=== PATIENT | male | born 1970 | race Caucasian/White ===

== ENCOUNTER 2016-08-12 08:29 | Emergency (ER) | payer OTHER ==
[~2016-08-12] VITALS: Ht 167.6 cm; Wt 75.0 kg
[2016-08-12 08:29] VITALS: Ht 167.6 cm; Wt 75.0 kg
[2016-08-12] MEDS ORDERED: METOCLOPRAMIDE 10 MG INJ IV STA (08:38)
[2016-08-12] MEDS ORDERED: SOD CHLORIDE 0.9% 1,000 ML IV STA (08:38)
[2016-08-12 09:05] LABS: BASOPHILS % 0.6 % (0.0-2.0); EOSINOPHILS % 0.3 % (0.0-7.0); HEMATOCRIT 49.8 % (42.0-52.0); HEMOGLOBIN 17.2 g/dl (14.0-18.0); LYMPHOCYTES # 2.1 10^3/ul (0.8-2.9); LYMPHOCYTES % 26.5 % (15.0-51.0); MEAN CORPUSCULAR HEMOGLOBIN 32.6 pg (29.0-33.0); MEAN CORPUSCULAR HGB CONC 34.5 g/dl (32.0-37.0); MEAN CORPUSCULAR VOLUME 94.5 fl (82.0-101.0); MONOCYTE # 0.4 10^3/ul (0.3-0.9); MONOCYTES % 5.4 % (0.0-11.0); NEUTROPHIL # 5.2 10^3/ul (1.6-7.5); NEUTROPHILS % 67.2 % (39.0-77.0); PLATELET COUNT 275 10^3/UL (140-440); RED BLOOD COUNT 5.27 10^6/ul (4.70-6.10); RED CELL DISTRIBUTION WIDTH 12.6 % (11.5-14.5); UNCORRECTED WBC 7.8 10^3/ul (4.8-10.8); WHITE BLOOD COUNT 7.8 10^3/ul (4.8-10.8)
[2016-08-12 09:09] LABS: CONDITION 1
[2016-08-12 09:15] LABS: ALBUMIN 4.5 g/dl (3.3-4.9); CHLORIDE 105 mmol/L (97-110); SODIUM 147 mmol/L (135-144)
[2016-08-12 09:16] LABS: POTASSIUM 3.9 mmol/L (3.5-5.1)
[2016-08-12 09:17] LABS: CREATININE 0.85 mg/dl (0.61-1.24)
[2016-08-12 09:18] LABS: ALANINE AMINOTRANSFERASE 145 IU/L (13-69); ALBUMIN/GLOBULIN RATIO 1.28; ALKALINE PHOSPHATASE 91 IU/L (42-121); ANION GAP 21 (8-16); ASPARTATE AMINO TRANSFERASE 105 IU/L (15-46); BILIRUBIN,INDIRECT 0.3 mg/dl (0-1.1); BILIRUBIN,TOTAL 0.3 mg/dl (0.2-1.3); BLOOD UREA NITROGEN 9 mg/dl (7-20); CARBON DIOXIDE 25 mmol/L (21-31); CREATINE KINASE 102 IU/L (23-200); GLUCOSE 122 mg/dl (70-220)
[2016-08-12 09:19] LABS: CALCIUM 9.2 mg/dl (8.4-10.2)
[2016-08-12 09:27] LABS: B-TYPE NATRIURETIC PEPTIDE 26 PG/ML (0-125); CK-MB 0.58 ng/ml (0.0-2.4)
[2016-08-12 09:31] LABS: TROPONIN-I < 0.012 ng/ml (0.00-0.12)
[2016-08-12 09:49] LABS: INR 0.96; PROTIME 12.8 Sec (12.2-14.2)
--- NOTE | 2016-08-12 09:59 | ERD ---
ER Documentation Chief Complaint Date/Time DATE: 08/12/16 TIME: 09:54 Chief Complaint Patient BIB [employer] in custody for complaint of weakness HPI This is a 46-year-old male with a known history of alcohol abuse that was brought in to the emergency department by [employer]. The patient was brought to the emergency department from medical clearance for skilled nursing. [employer] indicated there is no signs of trauma or drug paraphernalia. The patient states he drinks alcohol on a daily basis. His last consumption of alcohol was 10 hours prior to arrival. He states he has never had withdrawal seizures in the past. The patient was brought to the emergency department to be further evaluated as when placed under custody he stated he became weak and dizzy. He denied any vertigo. He denied any syncope or near syncope episode. He has not had any hemoptysis hematemesis or melanotic stools. He denies any chest pain or pressure that radiates to the neck or back or down he has no shortness of breath at rest or exertion. The patient states he feels his dizziness was a result of him becoming nervous when placed under arrest. ROS All systems reviewed and are negative except as per history of present illness. Medications Home Meds No Active Prescriptions or Reported Meds Allergies Allergies: Coded Allergies: No Known Allergy (Unverified , 08/12/16) PMhx/Soc Medical and Surgical Hx: pt denies Medical Hx, pt denies Surgical Hx Hx Alcohol Use: Yes (drinks every day ) Hx Substance Use: No Hx Tobacco Use: No Smoking Status: Never smoker Physical Exam Vitals Vital Signs Date Time Temp Pulse Resp B/P Pulse Ox O2 Delivery O2 Flow Rate FiO2 08/12/16 08:29 98.3 94 20 139/93 98 Physical Exam Constitutional:Well-developed. Well-nourished. HEENT:Normocephalic. Atraumatic.Pupils were equal round reactive to light. Dry mucous membranes.No tonsillar exudates. Neck: No nuchal rigidity. No lymphadenopathy. No posterior cervical spine tenderness or step-offs. Respiratory: Not using accessory muscles of respiration.Lungs were clear to auscultation bilaterally. No rhonchi. No rales. No wheezing. Cardiovascular: Regular rate regular rhythm.No murmurs. No rubs were appreciated.S1, S2 normal. Distal pulses are palpable 2+ bilaterally. GI: Abdomen was soft. Nontender. Non Distended. No pulsatile abdominal masses or bruits. No rebound. No guarding. Bowel sounds were present and normal. No hepatomegaly Muscle skeletal: Full range of motion of both the upper and lower extremities bilaterally.Normal muscle tone.No assymetrical calf tenderness or swelling. Skin: No petechia, no purpura. No lesions on the palms or the soles of the feet. No maculopapular rash. NEURO: Patient was alert, awake, orientated x3.No facial droop. Gait observed and normal with no ataxia.Speech had regular rate and rhythm. No focal neurological deficits. Result Diagram: 08/12/16 0847 08/12/16 0847 Results 24 hrs Laboratory Tests Test 08/12/16 08:47 Activated Partial Thromboplast Time 23.0Sec Alanine Aminotransferase (ALT/SGPT) 145IU/L Albumin 4.5g/dl Albumin/Globulin Ratio 1.28 Alkaline Phosphatase 91IU/L Anion Gap 21 Aspartate Amino Transf (AST/SGOT) 105IU/L B-Type Natriuretic Peptide 26PG/ML Basophils # 0.010^3/ul Basophils % 0.6% Blood Urea Nitrogen 9mg/dl Calcium Level 9.2mg/dl Carbon Dioxide Level 25mmol/L Chloride Level 105mmol/L Creatine Kinase 102IU/L Creatine Kinase Index 0.6 Creatinine 0.85mg/dl Creatinine Kinase MB (Mass) 0.58ng/ml Direct Bilirubin 0.00mg/dl Eosinophils # 0.010^3/ul Eosinophils % 0.3% Ethyl Alcohol Level 79.0mg/dl Globulin 3.50g/dl Glucose Level 122mg/dl Hematocrit 49.8% Hemoglobin 17.2g/dl INR International Normalized Ratio 0.96 Indirect Bilirubin 0.3mg/dl Lymphocytes # 2.110^3/ul Lymphocytes % 26.5% Mean Corpuscular Hemoglobin 32.6pg Mean Corpuscular Hemoglobin Concent 34.5g/dl Mean Corpuscular Volume 94.5fl Mean Platelet Volume 8.0fl Monocytes # 0.410^3/ul Monocytes % 5.4% Neutrophils # 5.210^3/ul Neutrophils % 67.2% Nucleated Red Blood Cells # 0.010^3/ul Nucleated Red Blood Cells % 0.0/100WBC Platelet Count 89485^3/UL Potassium Level 3.9mmol/L Prothrombin Time 12.8Sec Prothrombin Time Ratio 1.0 Red Blood Count 5.2710^6/ul Red Cell Distribution Width 12.6% Sodium Level 147mmol/L Total Bilirubin 0.3mg/dl Total Protein 8.0g/dl Troponin I < 0.012ng/ml White Blood Count 7.810^3/ul Current Medications Medications (Trade) Dose Ordered Sig/Noelle Route PRN Reason Start Time Stop Time Status Last Admin Dose Admin Sodium Chloride (NS) 1,000 ml @ 1,000 mls/hr Q1H STAT IV 08/12/16 08:38 08/12/16 09:37 DC 08/12/16 09:39 Metoclopramide HCl (Reglan) 10 mg ONCE STAT IV 08/12/16 08:38 08/12/16 08:40 DC 08/12/16 09:39 Procedures/MDM This patient presented to the emergency department with a sudden onset of dizziness. There is no signs of trauma or drug paraphernalia and the patient was not experiencing alcohol withdrawal symptoms or impending delirium tremors. The patient did appear to be clinically dehydrated and therefore was given a liter bolus of 0.9 normal saline. The patient had transaminitis but no ascites. 12 Lead EKG tracing ordered and reviewed by myself showed: Normal sinus rhythm of 91 bpm and no arrhythmia. ID interval normal. QRS duration normal. No ST segment elevation No ST segment depression. T-wave inversion in the inferior leads III and aVF I explained to the patient that he had abnormal findings on his 12-lead EKG however his troponin was negative and he indicated that roughly 5 years ago he was admitted to the hospital had a full cardiac workup with stress test and echocardiogram that were normal. At this time the patient had no chest pain or pressure and I did feel this can be further evaluated on an outpatient basis. He has no family history of coronary artery disease. He stated his dizziness had resolved after he received the IV fluids. The patient's serum ethanol level was 79. He had no physical exam findings to suggest impending delirium tremors. The patient refused a banana bag in the emergency department The patient was discharged home in fair condition. They were instructed to return to the emergency department at any time if there was any worsening of their condition. The patient stated they would follow up with their PCP in the next 24-48 hours to initiate a suitable medication regimen under the care of their PCP as well as to allow their PCP to monitor any drug reactions. The patient was discharged home with prescriptions after they gave informed consent to the new medication. They were also fully informed by myself on the adverse effects and adverse drug interactions in order to provide adequate safeguards to prevent possible adverse reactions to medications. Departure Diagnosis: Primary Impression: Dizziness Additional Impression: Transaminitis Condition: Fair Patient Instructions: Possible Causes of Dizziness or Fainting Additional Instructions: PATIENT IS MEDICALLY CLEARED FOR [facility] CLEARANCE CAREN SHINE Aug 12, 2016 09:59
[2016-08-12 10:45] VITALS: BP 146/90; PULSE 70; RESP 16; TEMP 98.1
== END 2016-08-12 10:45 | disposition home or self-care (01) ==
LOC: E/R 08:29
DX: R42 Dizziness and giddiness (principal); R74.0 Nonspecific elevation of levels of transaminase and lactic acid dehydrogenase [LDH]
CPT/HCPCS: 80053; 80306; 82550; 82553; 83880; 84484; 85025; 85610; 85730; 93005; 96374; 99284; J2765; J7030

== ENCOUNTER 2018-12-21 13:31 | Emergency (ER) | payer OTHER ==
[~2018-12-21] VITALS: Ht 172.7 cm; Wt 80.0 kg
[2018-12-21 13:40] VITALS: BP 124/74; PULSE 91; RESP 20; Ht 172.7 cm; Wt 80.0 kg
--- NOTE | 2018-12-21 14:11 | ERD ---
ER Documentation Chief Complaint Chief Complaint right knee pain/injury HPI Patient is a 48-year-old male, past medical history of hypertension, presents the ER for concerns of right knee pain x1 day. Patient states he was getting out of the car last night when he developed his pain. Patient states his pain is constant is a 9 out of 10. Pain is localized to the medial aspect of his knee. Patient denies any falls or trauma. Patient has not taken any pain medication. Patient states he has trouble bending his knee secondary to the pain. Patient has no fevers or chills. Patient denies any previous fractures or dislocations. Patient denies any calf pain or calf swelling. ROS All systems reviewed and are negative except as per history of present illness. Medications Home Meds Active Scripts Ibuprofen* (Motrin*) 600 Mg Tab, 600 MG PO Q6, #30 TAB Prov:KAYYLNN MILLER PA-C 12/21/18 Allergies Allergies: Coded Allergies: No Known Allergy (Unverified , 08/12/16) PMhx/Soc Hx Alcohol Use: Yes (drinks every day ) Hx Substance Use: No Hx Tobacco Use: No FmHx Family History: No diabetes Physical Exam Vitals Vital Signs Date Temp Pulse Resp B/P (MAP) Pulse Ox O2 O2 Flow FiO2 Time Delivery Rate 12/21/18 98.1 91 20 124/74 96 13:40 (91) Physical Exam GENERAL: Well-developed, well-nourished male. Appears in no acute distress. HEAD: Normocephalic, atraumatic. EYES: Pupils are equally reactive bilaterally. EOMs grossly intact. No conjunctival erythema. NECK: Supple. No meningismus. Normal range of motion of the neck. EXTREMITIES: Equal pulses bilaterally. No peripheral clubbing, cyanosis or edema. No unilateral leg swelling. NEUROLOGIC: Alert and oriented. Moving all four extremities without any difficulty. Normal speech. SKIN: Normal color. Warm and dry. No rashes or lesions. RLE: No obvious deformity. No ecchymosis. Mild swelling noted to the medial aspect of the knee. Decreased range of motion secondary to pain. Patient has trouble with knee flexion. Skin intact. Sensation intact to light touch. Neurovascularly intact. (Able to plantarflex, dorsiflex, brooke foot, invert foot, raise big toe.) 2+ DP and DT pulses. Results 24 hrs Current Medications Medications Dose Sig/Noelle Start Time Status Last (Trade) Ordered Route PRN Stop Time Admin Dose Reason Admin Ibuprofen 600 mg ONCE ONCE 12/21/18 DC 12/21/18 (Motrin) PO 14:30 14:12 12/21/18 14:31 Procedures/MDM ED COURSE: The patient was stable throughout ED course. I kept the patient and/or family informed of laboratory and diagnostic imaging results throughout the ED course. DIAGNOSTIC IMAGING: Read by radiologist. Patient: JUAN DANIEL RODRIGUEZ : 1970 Age: 48 Sex: M MR #: [id number] DOS: 12/21/18 1408 Ordering MD: KAYLYNN MILLER PA-C Location: [facility] Room/Bed: PROCEDURE: XR Knee. CLINICAL INDICATION: R knee pain TECHNIQUE: AP, lateral and tunnel view of the right knee were obtained. The images reviewed on a PACS workstation. COMPARISON: None. FINDINGS: Mineralization is intact. No displaced fracture identified. Trace joint fluid. Mild tibial spine hypertrophy. No significant cartilage space narrowing on nonweightbearing images. IMPRESSION: 1. No displaced fracture identified. Minimal degenerative changes as above. Trace joint fluid. 2. Follow-up MRI may be obtained if clinically indicated. RPTAT: BBDD Physician Remigio Date Time Electronically viewed and signed by Physician Remigio on 12/21/2018 15:16 RG/ CC: KAYLYNN MILLER PA-C [id number] PROCEDURES: SPLINT APPLICATION: The patient was verbally consented at bedside prior to splint application. Patient was explained the risks, benefits and alternatives to this procedure. The patient was neurovascularly intact prior to and status post application of the splint. The patient tolerated the procedure well with no complications. Splint type: PATY wrap Extremity: right knee Indication: Mild tibial spine hypertrophy. No significant cartilage space narrowing on nonweightbearing images. MEDICATIONS GIVEN: Ibuprofen Patient tolerated medication well with no adverse reactions. Patient reported improvement in pain. MEDICAL DECISION MAKING: This is a 48-year-old male, with past medical history of hypertension presents the ER for concerns of right knee pain. Vital signs were reviewed. Patient was afebrile. X-ray imaging was negative for fracture or dislocation. Patient does have degenerative changes. Patient was advised he will need an MRI and outpatient basis. Patient was given Paty wrap for comfort measures. Low suspicion for fracture, dislocation, septic joint, gout, DVT or compartment syndrome. At this time, unable to rule out any meniscus and knee ligament injuries. PRESCRIPTIONS: Ibuprofen DISCHARGE: At this time, patient is stable for discharge and outpatient management. RICE therapy and ROM exercises were advised to avoid stiffness. I have instructed the patient to follow-up with his/her primary care physician in 1-2 days. I have discussed with the patient the possibility of needing to see an health safety specialist for further workup and imaging if the pain persists. I have instructed the patient to promptly return to the ER for any new or worsening symptoms including increased pain, swelling, redness, warmth or fever. The patient and/or family expressed understanding of and agreement with this plan. All questions were answered. Home care instructions were provided. Disclaimer: Inadvertent spelling and grammatical errors are likely due to EHR/dictation software use and do not reflect on the overall quality of patient care. Also, please note that the electronic time recorded on this note does not necessarily reflect the actual time of the patient encounter. Departure Diagnosis: Primary Impression: Knee pain Chronicity: acute Laterality: right Qualified Codes: M25.561 - Pain in right knee Condition: Fair Patient Instructions: Knee Pain, Uncertain Cause Referrals: [facility] YOU HAVE RECEIVED A MEDICAL SCREENING EXAM AND THE RESULTS INDICATE THAT YOU DO NOT HAVE A CONDITION THAT REQUIRES URGENT TREATMENT IN THE EMERGENCY DEPARTMENT. FURTHER EVALUATION AND TREATMENT OF YOUR CONDITION CAN WAIT UNTIL YOU ARE SEEN IN YOUR DOCTORS OFFICE WITHIN THE NEXT 1-2 DAYS. IT IS YOUR RESPONSIBILITY TO MAKE AN APPOINTMENT FOR FOLOW-UP CARE. IF YOU HAVE A PRIMARY DOCTOR --you should call your primary doctor and schedule an appointment IF YOU DO NOT HAVE A PRIMARY DOCTOR YOU CAN CALL OUR PHYSICIAN REFERRAL HOTLINE AT IF YOU CAN NOT AFFORD TO SEE A PHYSICIAN YOU CAN CHOSE FROM THE FOLLOWING [facility] [address] [facility] [facility] [address] [facility]. [facility] [address] [facility] [address] [facility] [address] [facility]. [facility] [address] [facility]. [facility] YOU HAVE RECEIVED A MEDICAL SCREENING EXAM AND THE RESULTS INDICATE THAT YOU DO NOT HAVE A CONDITION THAT REQUIRES URGENT TREATMENT IN THE EMERGENCY DEPARTMENT. FURTHER EVALUATION AND TREATMENT OF YOUR CONDITION CAN WAIT UNTIL YOU ARE SEEN IN YOUR DOCTORS OFFICE WITHIN THE NEXT 1-2 DAYS. IT IS YOUR RESPONSIBILITY TO MAKE AN APPOINTMENT FOR FOLOW-UP CARE. IF YOU HAVE A PRIMARY DOCTOR --you should call your primary doctor and schedule and appointment IF YOU DO NOT HAVE A PRIMARY DOCTOR YOU CAN CALL OUR PHYSICIAN REFERRAL HOTLINE AT . IF YOU CAN NOT AFFORD TO SEE A PHYSICIAN YOU CAN CHOSE FROM THE FOLLOWING [facility] INSTITUTIONS: [facility] [address] [place] [address] [facility] [address] [place] [address] [facility] [address] [place] [address] Additional Instructions: Call your primary care doctor TOMORROW for an appointment during the next 1-2 days.See the doctor sooner or return here if your condition worsens before your appointment time. KAYLYNN MILLER PA-C Dec 21, 2018 14:11
[2018-12-21] MEDS ORDERED: IBUPROFEN 600 MG TAB PO ONE (14:30)
[2018-12-21] MEDS ORDERED: IBUP-1542 PO (15:44)
== END 2018-12-21 15:57 | disposition home or self-care (01) ==
LOC: FTE 13:31
DX: M25.561 Pain in right knee (principal); I10 Essential (primary) hypertension
CPT/HCPCS: 73562; Z7610

== ENCOUNTER 2019-02-09 19:53 | Observation (INO) | payer OTHER ==
[~2019-02-09] VITALS: Ht 172.7 cm; Wt 80.0 kg
[~2019-02-09 19:53] MED LIST: AMLO-147 PO; ATOR10TA65 PO; IBUP-1542 PO; SULF1TAB31 PO
[2019-02-09] MEDS ORDERED: morphine 4 MG/ML VIAL IV STA (21:07)
[2019-02-09] MEDS ORDERED: MEROPENEM 1 GM/50ML(PMX) 50 ML IVPB STA (21:16)
[2019-02-09] MEDS ORDERED: VANCOMYCIN 1 GM (PMX) 250 ML IVPB STA (21:16)
[2019-02-09] MEDS ORDERED: DIPHTH/TET/ACEL PERTUSS (ADULT) 0.5 ML VIAL IM* ONE (21:30)
[2019-02-09] MEDS ORDERED: LIDOCAINE 1% (MDV) 20 ML INJ SC ONE (21:30)
[2019-02-09] MEDS ORDERED: SOD CHLORIDE 0.9% 1,000 ML IV ONE (21:30)
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
[2019-02-09] MEDS ORDERED: VANCOMYCIN IV PER PHARMACY XX SCH (22:30)
[2019-02-09] MEDS ORDERED: HYDROCODONE/APAP (5/325) TAB PO PRN (22:30)
[2019-02-09] MEDS ORDERED: BISACODYL (EC) 5 MG TAB PO PRN (22:30)
[2019-02-09] MEDS ORDERED: ACETAMINOPHEN 325 MG TAB PO PRN (22:30)
[2019-02-09] MEDS ORDERED: NACL 0.9% 3 ML SYG IV SCH (22:30)
[2019-02-09] MEDS ORDERED: DOCUSATE SODIUM 100 MG CAP PO PRN (22:30)
[2019-02-10 01:02] VITALS: Ht 172.7 cm; Wt 80.0 kg
[2019-02-10] MEDS: VANCOMYCIN 1.25 GM/NS 250 ML 250 ML IVPB SCH ×2 (06:01→17:28)
[2019-02-10] MEDS: KETOROLAC 15 MG INJ IV SCH ×4 (06:01→23:40)
[2019-02-10 08:00] VITALS: BP 118/64; PULSE 72; RESP 16
[2019-02-10] MEDS: AMLODIPINE 10 MG TAB PO SCH (08:25)
[2019-02-10 14:00] VITALS: BP 113/60; PULSE 75; RESP 14
--- NOTE | 2019-02-10 14:33 | PN ---
Date/Time of Note Date/Time of Note DATE: 02/10/19 TIME: 14:28 Assessment/Plan VTE Prophylaxis Risk score (from Ns)>0 risk: 3 SCD applied (from Ns): Yes Pharmacological prophylaxis: LMWH Lines/Catheters IV Catheter Type (from Nrsg): Saline Lock Assessment/Plan Assessment/Plan 1. Left knee trauma with cellulitis, continue vancomycin and keep left LE lifted, MRI reviewed 2. HTN, controlled 3. Hyperlipidemia: Continue statin 4. DVT GI prophylaxis: lovenox Result Diagram: 02/09/19 2155 02/09/19 2154 Results 24hrs Laboratory Tests Test 02/09/19 21:54 02/09/19 21:55 Activated Partial Thromboplast Time 28.7 Mix PTT Normal Plasma Immediate Sodium Level 141 Potassium Level 3.5 Chloride Level 103 Carbon Dioxide Level 28 Anion Gap 10 Blood Urea Nitrogen 10 Creatinine 0.86 Est Glomerular Filtrat Rate mL/min > 60 Glucose Level 86 Calcium Level 9.3 Total Bilirubin 0.4 Direct Bilirubin 0.00 Indirect Bilirubin 0.4 Aspartate Amino Transf (AST/SGOT) 66 H Alanine Aminotransferase (ALT/SGPT) 96 H Alkaline Phosphatase 83 C-Reactive Protein 1.5 H Total Protein 8.1 Albumin 4.4 Globulin 3.70 H Albumin/Globulin Ratio 1.18 White Blood Count 8.7 Red Blood Count 4.53 L Hemoglobin 14.6 Hematocrit 43.2 Mean Corpuscular Volume 95.4 Mean Corpuscular Hemoglobin 32.2 Mean Corpuscular Hemoglobin Concent 33.8 Red Cell Distribution Width 11.8 Platelet Count 314 Mean Platelet Volume 9.6 Immature Granulocytes % 0.300 Neutrophils % 62.6 Lymphocytes % 26.2 Monocytes % 9.3 Eosinophils % 0.9 Basophils % 0.7 Nucleated Red Blood Cells % 0.0 Immature Granulocytes # 0.030 Neutrophils # 5.4 Lymphocytes # 2.3 Monocytes # 0.8 Eosinophils # 0.1 Basophils # 0.1 Nucleated Red Blood Cells # 0.0 Erythrocyte Sedimentation Rate 18 Subjective 24 Hr Interval Summary Free Text/Dictation still pain with swelling on left lower extremity Exam/Review of Systems Exam Vitals Vital Signs Date Temp Pulse Resp B/P (MAP) Pulse Ox O2 O2 Flow FiO2 Time Delivery Rate 02/10/19 97.9 75 14 113/60 99 14:00 (77) 02/09/19 Room Air 23:57 Intake and Output 02/09/19 02/09/19 02/10/19 1515:00 23:00 07:00 IntakeIntake Total 1050 ml 490 ml BalanceBalance 1050 ml 490 ml Constitutional: alert, oriented, well developed Psych: no complaints, nl mood/affect Head: normocephalic, atraumatic Eyes: nl conjunctiva, EOMI, nl lids, PERRL ENMT: nl external ears & nose, nl lips & teeth, nl nasal mucosa & septum Neck: supple, non-tender Respiratory: clear to auscultation, normal air movement; No congested cough, No crackles/rales, No diminished breath sounds, No intercostal retraction, No labored breathing, No respirations, No tactile fremitus, No wheezing, No other Cardiovascular: regular rate and rhythm, nl pulses; No bruits, No diastolic murmur, No edema, No gallop, No irregular rhythm, No jugular venous distention (JVD), No murmurs/extra sounds, No rub, No systolic murmur, No S3, No S4, No other Gastrointestinal: soft, nl liver, spleen, non-tender Extremities: other (left lower extremity redness, swelling and warm with tenderness around the knee) Results Results 24hrs Laboratory Tests Test 02/09/19 21:54 02/09/19 21:55 Activated Partial Thromboplast Time 28.7 Mix PTT Normal Plasma Immediate Sodium Level 141 Potassium Level 3.5 Chloride Level 103 Carbon Dioxide Level 28 Anion Gap 10 Blood Urea Nitrogen 10 Creatinine 0.86 Est Glomerular Filtrat Rate mL/min > 60 Glucose Level 86 Calcium Level 9.3 Total Bilirubin 0.4 Direct Bilirubin 0.00 Indirect Bilirubin 0.4 Aspartate Amino Transf (AST/SGOT) 66 H Alanine Aminotransferase (ALT/SGPT) 96 H Alkaline Phosphatase 83 C-Reactive Protein 1.5 H Total Protein 8.1 Albumin 4.4 Globulin 3.70 H Albumin/Globulin Ratio 1.18 White Blood Count 8.7 Red Blood Count 4.53 L Hemoglobin 14.6 Hematocrit 43.2 Mean Corpuscular Volume 95.4 Mean Corpuscular Hemoglobin 32.2 Mean Corpuscular Hemoglobin Concent 33.8 Red Cell Distribution Width 11.8 Platelet Count 314 Mean Platelet Volume 9.6 Immature Granulocytes % 0.300 Neutrophils % 62.6 Lymphocytes % 26.2 Monocytes % 9.3 Eosinophils % 0.9 Basophils % 0.7 Nucleated Red Blood Cells % 0.0 Immature Granulocytes # 0.030 Neutrophils # 5.4 Lymphocytes # 2.3 Monocytes # 0.8 Eosinophils # 0.1 Basophils # 0.1 Nucleated Red Blood Cells # 0.0 Erythrocyte Sedimentation Rate 18 Medications Medication Current Medications IV Flush (NS 3 ml) 3 ml PER PROTOCOL IV ; Start 02/09/19 at 22:30 Acetaminophen (Tylenol Tab) 650 mg Q6H PRN PO .PAIN 1-3 OR TEMP; Start 02/09/19 at 22:30 Acetaminophen/ Hydrocodone Bitart ([place] (5/325)) 1 tab Q6H PRN PO .MOD PAIN 4- 6; Start 02/09/19 at 22:30 Docusate Sodium (Colace) 100 mg Q12H PRN PO .CONSTIPATION; Start 02/09/19 at 22:30 Bisacodyl (Dulcolax) 5 mg DAILY PRN PO .CONSTIPATION; Start 02/09/19 at 22:30 Vancomycin HCl (Vanco Iv Per Pharmacy) VANCOMYCIN PER PHARMACY PER PROTOCOL XX ; Start 02/09/19 at 22:30 Vancomycin/Sodium Chloride 250 ml @ 83.333 mls/ hr Q12H IVPB Last administered on 02/10/19at 06:01; Admin Dose 83.333 MLS/HR; Start 02/10/19 at 06:00 Amlodipine Besylate (Norvasc) 10 mg DAILY PO Last administered on 02/10/19at 08:25; Admin Dose 10 MG; Start 02/10/19 at 09:00 Atorvastatin Calcium (Lipitor) 10 mg QHS PO ; Start 02/10/19 at 21:00 Ketorolac Tromethamine (Toradol) 15 mg Q6H IV Last administered on 02/10/19at 11:24; Admin Dose 15 MG; Start 02/10/19 at 05:30; Stop 02/12/19 at 05:29 Miscellaneous Information (*Rx Drug Level Order Reminder*) VANCOMYCIN TROUGH AT 8/10... 0500 ONCE XX ; Start 02/11/19 at 05:00; Stop 02/11/19 at 05:01 JENNIFER STONE MD Feb 10, 2019 14:33
[2019-02-10] MEDS ORDERED: ATORVASTATIN 10 MG TAB PO SCH (21:00)
[2019-02-10 22:03] VITALS: BP 121/67; RESP 18
[2019-02-11 02:03] VITALS: BP 101/63; RESP 17
[2019-02-11] MEDS: VANCOMYCIN 1.25 GM/NS 250 ML 250 ML IVPB SCH (06:09)
[2019-02-11] MEDS: KETOROLAC 15 MG INJ IV SCH ×2 (06:09→11:51)
[2019-02-11 07:37] VITALS: BP 114/68; PULSE 67; RESP 18
[2019-02-11] MEDS: AMLODIPINE 10 MG TAB PO SCH (08:22)
[2019-02-11] MEDS ORDERED: ENOXAPARIN 40 MG/0.4 ML SYG SC SCH (09:00)
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
[2019-02-11] MEDS ORDERED: THIAMINE 100 MG TAB PO SCH (13:30)
[2019-02-11 14:00] VITALS: BP 138/83; PULSE 82; RESP 16
[2019-02-11] MEDS ORDERED: VANCOMYCIN 1.25 GM/NS 250 ML 250 ML IVPB SCH (14:00)
== END 2019-02-11 16:10 | disposition home or self-care (01) ==
LOC: FTE 19:53 → INTOOBSV 22:14 → UNDOADMIN 22:14 → MS3 22:14
PROVIDERS: ADMIT Family Medicine; ATTEND Internal Medicine
DX: S80.02XA Contusion of left knee, initial encounter (principal); L03.116 Cellulitis of left lower limb; I10 Essential (primary) hypertension; E78.5 Hyperlipidemia, unspecified; V18.0XXA Pedal cycle driver injured in noncollision transport accident in nontraffic accident, initial encounter; Y93.55 Activity, bike riding; Y92.85 Railroad track as the place of occurrence of the external cause
CPT/HCPCS: 73100; 73120; 73562; 73590; 73721; 80053; 80202; 82565; 84520; 85025; 85335; 85651; 86140; 90471; 90715; 93971; 96365; 96375; J1650; J1885; J2185; J2270; J3370; J7030; Z7500; Z7502; Z7610; G0378